=== PATIENT | male | born 1965 | race Two or more races ===

== ENCOUNTER 2023-12-23 08:27 | Outpatient (CLI) | payer OTHER | END 2023-12-23 08:29 | disposition home or self-care (01) | LOC: NUCLEAR 08:27 | PROVIDERS: ATTEND Internal Medicine | DX: I73.9 Peripheral vascular disease, unspecified (principal); I25.10 Atherosclerotic heart disease of native coronary artery without angina pectoris ==

== ENCOUNTER 2024-01-06 07:16 | Outpatient (CLI) | payer OTHER | END 2024-01-06 07:17 | disposition home or self-care (01) | LOC: NUCLEAR 07:16 | PROVIDERS: ATTEND Internal Medicine | DX: I20.9 Angina pectoris, unspecified (principal); R07.2 Precordial pain | CPT/HCPCS: 78452; 93017; A9500 ==